=== PATIENT | male | born 1970 | race Caucasian/White ===

== ENCOUNTER 2019-06-12 02:40 | Emergency (ER) | payer OTHER ==
[~2019-06-12] VITALS: Ht 182.9 cm; Wt 102.1 kg
[2019-06-12] MEDS ORDERED: KLONOPIN1 MG PO (02:45)
[2019-06-12] MEDS ORDERED: ADDERALL 10 MG10 MG PO (02:45)
[2019-06-12] MEDS ORDERED: NORTRIPTYLINE H10 M1 PO (02:45)
[2019-06-12 03:07] LABS: HEMATOCRIT 42.8 % (42.0-52.0); HEMOGLOBIN 14.8 gm/dL (14.0-18.0); MCH 29.8 pg (26.0-34.0); MCHC 34.7 g/dL (28.0-37.0); MCV 85.9 fL (80.0-100.0); RBC 4.98 mil/uL (4.50-6.00); RDW 15.3 % (10.5-14.5); WBC 6.8 thou/uL (4.0-11.0)
[2019-06-12 03:15] LABS: CALCIUM 9.1 mg/dL (8.5-10.1); CREATININE 1.3 mg/dL (0.7-1.3); MAGNESIUM 2.1 mg/dL (1.8-2.4)
[2019-06-12 03:16] LABS: POTASSIUM 2.7 mmol/L (3.5-5.1)
[2019-06-12 04:17] VITALS: BP 136/83
--- NOTE | 2019-06-12 08:52 | EKG ---
[place] [address] [facility] [employer] [place] [address] ELECTROCARDIOGRAM REPORT Name: ANA VIVEROS Room #: DEP Masoud#: [id number] ������������������ Admission: 06/12/19 ������������������ Attend Phys: Discharge: 06/12/19 ������������������ Date of : 72 Report #: [id number] ����������������������������������������������������������������� [id number] THIS REPORT FOR: //name// [facility] ED Test Date: 2019-06-12 Test Time: 02:51:57 Pat Name: ANA VIVEROS Department: Room: Gender: Glue D[employer] Operator: : 1970 Requested By: Eber Keen Order Number: [id number] MD: Rafael Do Measurements Intervals [place] Rate: 123 P: 49 IA: 134 QRS: 16 QRSD: 98 T: -18 QT: 332 QTc: 475 Interpretive Statements Sinus tachycardia Nonspecific ST segment abnormality No previous ECG available for comparison Electronically Signed On 06-12-2019 8:51:58 CDT by Rafael Do [email or web address] ��������������������������������������������� <ELECTRONICALLY SIGNED> ���������������������������������������� By: Rafael Do MD, [facility] ��������������������������������������������� 06/12/19 0851 [id number] [id number] Rafael Do MD, FACC /EPI
== END 2019-06-12 04:43 | disposition home or self-care (01) ==
LOC: ER 02:40
PROVIDERS: Emergency Medicine
DX: F41.9 Anxiety disorder, unspecified (principal); E87.6 Hypokalemia; R00.0 Tachycardia, unspecified; F32.9 Major depressive disorder, single episode, unspecified; I48.91 Unspecified atrial fibrillation; F43.10 Post-traumatic stress disorder, unspecified; F10.10 Alcohol abuse, uncomplicated; Z79.899 Other long term (current) drug therapy; Z88.8 Allergy status to other drugs, medicaments and biological substances; Z87.442 Personal history of urinary calculi; Z86.711 Personal history of pulmonary embolism